=== PATIENT | female | born 1970 | race Caucasian/White ===

== ENCOUNTER 2017-02-04 02:16 | Emergency (ER) | payer OTHER ==
[~2017-02-04] VITALS: Ht 172.7 cm; Wt 65.8 kg
[~2017-02-04 02:16] MED LIST: AMBIEN 10 MG TA10 MG; DEPO-PROVER150 MG/M1; FLEXERIL PO; JOLESSA1 EACH; LEXAPRO20 MG; MOBIC7.5 M1 PO; PREDNISONE50 MG PO
[2017-02-04] MEDS ORDERED: ATIVAN1 MG PO (02:29)
[2017-02-04] MEDS ORDERED: XANAX 0.25 MG0.25 MG PO (02:29)
[2017-02-04 02:42] LABS: HEMATOCRIT 36.9 % (37.0-47.0); HEMOGLOBIN 12.7 gm/dL (12.0-15.0); MCH 29.4 pg (26.0-34.0); MCHC 34.3 g/dL (28.0-37.0); MCV 85.6 fL (80.0-100.0); RBC 4.3 mil/uL (4.20-5.00); RDW 13.7 % (10.5-14.5)
[2017-02-04 02:50] LABS: ANION GAP 13 mmol/L (7-16); BUN 13 mg/dL (7-18); CALCIUM 8.7 mg/dL (8.5-10.1); CHLORIDE 103 mmol/L (98-107); CO2 23 mmol/L (21-32); CREATININE 0.9 mg/dL (0.6-1.0); GLUCOSE 80 mg/dL (74-106); POTASSIUM 3.5 mmol/L (3.5-5.1); SODIUM 139 mmol/L (136-145)
[2017-02-04 02:57] LABS: SALICYLATE < 2.8 mg/dL (2.8-20.0)
[2017-02-04 02:58] LABS: ACETAMINOPHEN < 2 ug/mL (10-30)
[2017-02-04 03:12] LABS: URINE BILIRUBIN NEGATIVE (Negative); URINE BLOOD NEGATIVE (Negative); URINE COLOR YELLOW; URINE GLUCOSE-RANDOM* NEGATIVE (Negative); URINE KETONES NEGATIVE (Negative); URINE LEUKOCYTES-REFLEX NEGATIVE (Negative); URINE PROTEIN (DIPSTICK) NEGATIVE (Negative); URINE SPECIFIC GRAVITY <= 1.005 (1.003-1.035)
[2017-02-04 03:22] LABS: AMP/METHAMP Negative (Negative); BARBITURATES Negative (Negative); BENZODIAZEPINES POSITIVE (Negative); COCAINE Negative (Negative); METHADONE Negative (Negative); OPIATES Negative (Negative); PCP Negative (Negative); THC Negative (Negative)
[2017-02-04] MEDS ORDERED: WELLBUTRIN XL300 MG PO (14:28)
[2017-02-05 16:20] VITALS: BP 126/85
[2017-02-06 20:09] LABS: TRICYCLIC (TCA) CONFIRMATION Negative ng/mL (Cutoff=100)
== END 2017-02-05 16:20 ==
LOC: ER 02:16
PROVIDERS: Emergency Medicine
DX: T42.4X2A Poisoning by benzodiazepines, intentional self-harm, initial encounter (principal); F32.9 Major depressive disorder, single episode, unspecified; F10.99 Alcohol use, unspecified with unspecified alcohol-induced disorder; Y92.810 Car as the place of occurrence of the external cause; Y90.1 Blood alcohol level of 20-39 mg/100 ml